=== PATIENT | male | born 1970 | race Caucasian/White ===

== ENCOUNTER 2019-07-21 06:28 | Emergency (ER) | payer MEDICAID ==
[~2019-07-21] VITALS: Ht 190.5 cm; Wt 108.4 kg
--- NOTE | 2019-07-21 06:28 | NUR ---
PT MARIANNE MARIE. TAKEN TO BED 11
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
[2019-07-21 06:33] VITALS: BP 129/89
--- NOTE | 2019-07-21 06:35 | NUR ---
PT PLACED ON 3 LPM O2 VIA NC FOR SPO2 MAINTANANCE. SPO2 INCREASED TO 95%.
--- NOTE | 2019-07-21 06:40 | NUR ---
SEIZURE PRECAUTIONS IN PLACE.
--- NOTE | 2019-07-21 06:55 | NUR ---
X-Ray at bedside.
[2019-07-21 07:00] LABS: BASOPHILS % (AUTO) 0.5 % (0.0-2.0); EOSINOPHILS # (AUTO) 0.2 K/uL (0-0.4); EOSINOPHILS % (AUTO) 2.7 % (0.0-4.0); HEMOGLOBIN 14.6 g/dL (12.0-18.0); LYMPHOCYTES # (AUTO) 1.1 K/uL (2.0-11.5); LYMPHOCYTES % (AUTO) 18.3 % (20.5-51.1); MEAN CORPUSCULAR HEMOGLOBIN 30 pg (27-31); MEAN CORPUSCULAR HGB CONC 33 g/dL (33-37); MEAN CORPUSCULAR VOLUME 90.7 fL (80-94); MONOCYTES # (AUTO) 0.4 K/uL (0.8-1.0); MONOCYTES % (AUTO) 5.9 % (1.7-9.3); NEUTROPHILS # (AUTO) 4.4 K/uL (1.8-7.7); NEUTROPHILS % (AUTO) 72.6 % (42.2-75.2); PLATELET COUNT (AUTO) 252 K/uL (140-450); RED BLOOD CELL COUNT(AUTO) 4.85 MIL/uL (4.20-6.10); RED CELL DISTRIBUTION WIDTH 14.4 % (11.6-13.7)
--- NOTE | 2019-07-21 07:04 | NUR ---
DR. DAVID NELSON AT BEDSIDE.
--- NOTE | 2019-07-21 07:12 | NUR ---
REPORT GIVEN TO SUMANTH BRANDON. TRANSFER OF CARE AT THIS TIME.
[2019-07-21] MEDS ORDERED: ALBUTEROL 0.083% 2.5 MG/3 ML NEBU INH ONE (07:15)
[2019-07-21 07:20] LABS: ALBUMIN 3.7 g/dL (3.4-5.0); ANION GAP 11.1 (8-16); CARBON DIOXIDE 28.9 mmol/L (21-32); CREATININE 0.9 mg/dL (0.6-1.3); TOTAL BILIRUBIN 0.5 mg/dL (0.0-1.0)
--- NOTE | 2019-07-21 07:39 | NUR ---
Breathing treatment administered by respiratory therapist at bedside.
[2019-07-21 09:02] VITALS: BP 129/89
--- NOTE | 2019-07-21 09:02 | NUR ---
Patient discharged with v/s stable. Written and verbal after care instructions given and explained. Patient alert, oriented and verbalized understanding of instructions. Ambulatory with steady gait. All questions addressed prior to discharge. ID band removed. Patient advised to follow up with PMD. Rx of DEPAKOTE, SEROQUEL, AZITHROMYCIN, TRAZADONE, COGENTIN given. Patient educated on indication of medication including possible reaction and side effects. Opportunity to ask questions provided and answered.
== END 2019-07-21 09:02 | disposition home or self-care (01) ==
LOC: MED 06:28
DX: R07.89 Other chest pain (principal); R56.9 Unspecified convulsions; R05 Cough; R09.89 Other specified symptoms and signs involving the circulatory and respiratory systems
CPT/HCPCS: 36415; 71045; 80053; 83605; 84484; 85025; 87040; 93005; 94640; 99285; J7613; Q0092